=== PATIENT | male | born 1935 | race Caucasian/White ===

== ENCOUNTER 2022-05-02 10:41 | Emergency (ER) | payer OTHER, MEDICAID ==
[~2022-05-02] VITALS: Ht 180.3 cm; Wt 81.6 kg
[2022-05-02 10:51] VITALS: BP_SYST 124
--- NOTE | 2022-05-02 10:55 | NUR ---
Triaged pt and placed in waiting room until bed becomes available. Pt coming from home ambulatory with steady gait using cane. Pt c/o falling at home trying to get out of bed. C/o lower back pain 07/25 no deformity or bruising noted. A&Ox4. SKin intact. VSS. No chest pain and no sob. Denies n/v. NKA. Has hx of Asthma, DM, and HTN.
--- NOTE | 2022-05-02 14:11 | NUR ---
ER in triage examining patient.
[2022-05-02] MEDS ORDERED: OXYCODONE/ACETAMINOPHEN 5-325 TABLET PO ONE (15:15)
[2022-05-02] MEDS ORDERED: LIDOCAINE PATCH 5% 1 EA TP ONE (15:15)
[2022-05-02] MEDS ORDERED: methocarbamoL 500 MG TABLET PO ONE (15:15)
[2022-05-02] MEDS ORDERED: KETOROLAC TROMETHAMINE 30 MG VIAL IM ONE (15:15)
--- NOTE | 2022-05-02 15:46 | NUR ---
Pt moved to bed #5. Report given to Jasbir VERONICA.
[2022-05-02] MEDS ORDERED: ACET-2634 PO (16:43)
[2022-05-02] MEDS ORDERED: METH-634 PO (16:43)
[2022-05-02] MEDS ORDERED: LIDO1ADH22 TP (16:43)
[2022-05-02 16:51] VITALS: BP_SYST 134
--- NOTE | 2022-05-02 16:51 | NUR ---
PT DISCHARGED GIVEN AVS. VSS. NAD NOTED. PT ABLE TO AMBULATE TO EXIT WITH CANE, BASELINE FOR PT. ALL QUESTIONS ANSWERED. END OF CARE.
--- NOTE | 2022-05-02 16:53 | NUR ---
Patient given written and verbal discharge instructions and verbalizes understanding. ER MD discussed with patient the results and treatment provided. Patient in stable condition. ID arm band removed. Rx of Lido Patch, Tylenol, and muscle relaxant given. Patient educated on pain management and to follow up with PMD. Pain Scale 0/10. Opportunity for questions provided and answered. Medication side effect fact sheet provided.
== END 2022-05-02 16:51 | disposition home or self-care (01) ==
LOC: SED 10:41
DX: S39.012A Strain of muscle, fascia and tendon of lower back, initial encounter (principal); M51.36 Other intervertebral disc degeneration, lumbar region; N28.1 Cyst of kidney, acquired; J45.909 Unspecified asthma, uncomplicated; E11.9 Type 2 diabetes mellitus without complications; I10 Essential (primary) hypertension; W06.XXXA Fall from bed, initial encounter; Y93.89 Activity, other specified; Y92.89 Other specified places as the place of occurrence of the external cause; Y99.8 Other external cause status
CPT/HCPCS: 99284; 72131; 76376; 96372; J1885